=== PATIENT | male | born 1955 | race Caucasian/White ===

== ENCOUNTER 2017-02-09 14:26 | Emergency (ER) | payer OTHER ==
[2017-02-09] MEDS ORDERED: Aspirin Low Dose CHEW TAB* 81 MG PO ONE (14:48)
[2017-02-09 15:05] VITALS: BP 134/78
--- NOTE | 2017-02-09 15:34 | UC ---
Sherry Obrien SooYoung, scribed for Caty Cantu MD on 02/09/17 at 1439 . 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 Associated sx: heavy diaphoresis, nausea/vomiting, weakness, productive cough. Denies CP, fever, jaw pain, dysuria. Vomiting occurred after drinking water and club soda. Per , pt has been helping friends in [employer] and has experienced similar sx a few times over the past few weeks. Allergic to penicillin. Pt denies past cardiac issues, but there is FHx of carotid arteries. He had a stress test several years ago that was nml. - History of Current Complaint Stated Complaint: ARM NUMBNESS, CHEST COMPLAINT Hx Obtained From: Patient, Family/Business Enterprise Officer - present Onset/Duration: Sudden Onset, Lasting Hours, Still Present Timing: Constant Initial Severity: Moderate Current Severity: Moderate Pain Intensity: 0 Aggravating: Nothing Alleviating: Nothing Associated Signs & Symptoms: Positive: Tingling - in LUE, left deltoid, Weakness , Diaphoresis, Nausea/Vomiting, Cough. Negative: Chest Pain, Fever - Risk Factors Pulmonary Embolism Risk Factors: Negative Cardiac Risk Factors: Family History - of carotid artery blockages in both parents Atrial Fibrillation: Negative TAD Risk Factors: Negative - Allergy/Home Medications Allergies/Adverse Reactions: Allergies Allergy/AdvReac Type Severity Reaction Status Date / Time Penicillins Allergy Hives Verified 02/09/17 14:43 Home Medications: Home Medications ARIPiprazole TAB* [Abilify TAB*] 5 mg PO DAILY 02/09/17 [History Confirmed ] DULoxetine DR CAP* [Cymbalta CAP*] 60 mg PO DAILY 02/09/17 [History Confirmed ] Divalproex TAB(*) [Depakote (*)] 500 mg PO BEDTIME 02/09/17 [History Confirmed 02/09/17] PMH/Surg Hx/FS Hx/Imm Hx Previously Healthy: No Other Cardiovascular History: Cholesterol with medication Respiratory History: Asthma, Other Other Respiratory History: sleep apnea, CPAP GI/ History: Gastroesophageal Reflux Neurological History: Seizures - Surgical History Surgical History: Yes Surgery Procedure, Year, and Place: C5 - SURG - 10/21/13. Lt HIP - 7- SURG - STARTED FROM FX - THEN AVN - THEN TOTAL HIP -THEN 5 REVISIONS. Rt TOTAL KNEE. DISCECTOMY- LUMBAR. APPENDECTOMY. SHOULDER,. ABDOMINAL - NO IMPLANTS. BABY - REPAIR OF LRGE INTESTINE - Family History Known Family History: Positive: Cardiac Disease - carotid arteries blocked in both parents and sibling - Social History Occupation: Retired Lives: With Family Alcohol Use: None Substance Use Type: Prescribed Smoking Status (MU): Former Smoker Type: Cigarettes Amount Used/How Often: 1 PPD Length of Time of Smoking/Using Tobacco: 15 YEARS Have You Smoked in the Last Year: No When Did the Patient Quit Smoking/Using Tobacco: 2003 Household Exposure Type: Cigars - Immunization History Most Recent Influenza Vaccination: 2013 Most Recent Tetanus Shot: 2012 Most Recent Pneumonia Vaccination: never Review of Systems Constitutional: Fatigue, Other - pos: diaphoresis Skin: Negative Eyes: Negative ENT: Negative Respiratory: Cough - productive Cardiovascular: Negative Gastrointestinal: Vomiting, Nausea Genitourinary: Negative Motor: Negative Neurovascular: Negative Musculoskeletal: Negative Neurological: Weakness, Other - pos: tingling in LUE Psychological: Negative All Other Systems Reviewed And Are Negative: Yes Physical Exam Triage Information Reviewed: Yes Appearance: No Pain Distress, Well-Nourished, Ill-Appearing, Other: - pos: DIAPHORETIC Vital Signs: Initial Vital Signs Temp 96.2 F 02/09/17 14:40 Pulse 84 02/09/17 14:40 Resp 20 02/09/17 14:40 BP 173/92 02/09/17 14:40 Pulse Ox 98 02/09/17 14:40 elevated BP noted Vital Signs Reviewed: Yes Eyes: Positive: Conjunctiva Clear ENT: Positive: Normal ENT inspection Neck: Positive: Supple Respiratory: Positive: Lungs clear, Normal breath sounds, No respiratory distress Cardiovascular: Positive: RRR, No Murmur, Pulses Normal, Brisk Capillary Refill Abdomen Description: Positive: Nontender, Soft. Negative: Splenomegaly Bowel Sounds: Positive: Present Musculoskeletal: Positive: Strength Intact, ROM Intact Neurological: Positive: Alert, Muscle Tone Normal Psychological Exam: Normal Skin Exam: Normal Diagnostics - EKG Cardiac Rate: NL - 83 bpm Cardiac Rhythm: Sinus: Normal - nml AV ID conduction, nml QTC, neg axis -33, LVH , read at 1429. ST Segment: Normal - Assessment/Plan Course Of Treatment: Allergies noted, high blood pressure noted. Pt medications reviewed this visit. Although pt did not have chest pain, his symptoms of diaphoresis, nausea, left shoulder tingling, and generalized fatigue are concerning for possible silent MS. EKG does not show a STEMI, but it is not normal, has LVH and left axis. Will give pt ASA 324mg and transfer to [facility] ED by ambulance for further eval. - Differential Diagnoses - Chest Pain Differential Diagnosis/HQI/PQRI: Acute MS, ACS, Angina, Lower Respiratory Infection, Pulmonary Embolism - Clinical Impression Provider Diagnoses: generalized fatigue, nausea, diaphoresis, eval for ACS. High blood pressure without diagnosis of hypertension. - Physician Notifications Discussed Patient Care With: David Dinero - ED phys Time Discussed With Above Provider: 14:50 Instructed by Provider To: Transfer - to ED Discharge - Discharge Plan Condition: Stable Disposition: TRANS HIGHER LVL OF CARE FAC Discharge Disposition Comment: to [facility] Referrals: Cachorro Harrison MD [Primary Care Provider] - The documentation as recorded by the Sherry garcia SooYoung accurately reflects the service I personally performed and the decisions made by , Caty Cantu MD.
== END 2017-02-09 15:10 | disposition short-term general hospital (02) ==
LOC: UCEAST 14:26
DX: R53.83 Other fatigue (principal); R11.0 Nausea; R61 Generalized hyperhidrosis; R03.0 Elevated blood-pressure reading, without diagnosis of hypertension; J45.909 Unspecified asthma, uncomplicated; G47.30 Sleep apnea, unspecified; K21.9 Gastro-esophageal reflux disease without esophagitis; R56.9 Unspecified convulsions; Z72.0 Tobacco use; Z82.49 Family history of ischemic heart disease and other diseases of the circulatory system
CPT/HCPCS: 93005; 99213; A9270-GY; G0463

== ENCOUNTER 2017-02-09 15:24 | Observation (INO) | payer OTHER ==
[2017-02-09 15:42] LABS: Hematocrit 48 % (42-52); Hemoglobin 16.1 g/dl (14.0-18.0); Mean Corpuscular HGB Conc 34 g/dl (31-36); Mean Corpuscular Hemoglobin 30 pg (27-31); Mean Corpuscular Volume 90 fL (80-94); Mean Platelet Volume 9 um3 (7.4-10.4); Red Cell Distribution Width 13 % (10.5-15); White Blood Count 9.1 10^3/ul (3.5-10.8)
[2017-02-09] MEDS: NS 0.9% 1000 ML* 2,000 ML IV ONE ×2 (15:47→16:54)
[2017-02-09] MEDS ORDERED: Ondansetron INJ* 2 MG/ML VIAL IV ONE (15:52)
[2017-02-09 15:54] LABS: Albumin 4.7 g/dL (3.2-5.2); BUN/Creatinine Ratio 17.3 (8-20); C Reactive Protein 3.51 mg/L (< 5.00); Calcium 10.1 mg/dL (8.6-10.3); EGFR African American 93.1 (>60); EGFR Non-African American 72.4 (>60); Globulin 3.8 g/dL (2-4); Total Bilirubin 0.8 mg/dL (0.2-1.0); Total Protein 8.5 g/dL (6.4-8.9)
[2017-02-09 15:56] LABS: Potassium 4.5 mmol/L (3.5-5.0)
[2017-02-09 15:57] LABS: Troponin I 0.04 ng/mL (<0.04)
[2017-02-09 16:07] LABS: TSH (Thyroid Stimulating Horm) 1.19 mcIU/mL (0.34-5.60)
--- NOTE | 2017-02-09 16:17 | RAD ---
INDICATION: Diaphoresis COMPARISON: Similar chest x-ray dated July 03, 2015 TECHNIQUE: Single AP portable view of the chest was obtained. FINDINGS: Image quality is compromised due to the relative inferiority of a portable chest x-ray. The heart and mediastinum exhibit normal size and contour. The lungs are grossly clear. There is no evidence of a large pleural effusion. Visualized bones are normal for the patient's age. IMPRESSION: No radiographic evidence for acute cardiopulmonary abnormality on this portable chest x-ray.
[2017-02-09] MEDS ORDERED: Acetaminophen TAB* 325 MG PO ONE (17:33)
[2017-02-09] MEDS ORDERED: Aspirin Low Dose CHEW TAB* 81 MG PO ONE (17:33)
--- NOTE | 2017-02-09 17:42 | ED ---
Fina Obrien Edward, scribed for David Dinero MD on 02/09/17 at 1535 . Complex/Multi-Sys Presentation - HPI Summary HPI Summary: 61 y/o male BIBA s/p two episodes of vomiting and "L deltoid pain" and tingling. Patient had two episodes this morning of vomiting, L deltoid pain, feeling hot, nausea, diaphoresis and a STAPLES. In the past couple of weeks, the patient c/o mild L deltoid pain, fatigue, nausea, cough, and SOB. Denies CP, abd pain, bilateral ankle edema, bloody or black stool, and blood in his vomit. PMHx ulcers. SHx cholecystectomy. Patient stated he had a benign stress test several years ago. - History Of Current Complaint Hx Obtained From: Patient Onset/Duration: Sudden Onset - Severe episode of left deltoid pain and vomiting today, Lasting Weeks - Episodes of fatigue, nausea, diaphoresis and left deltoid pain and tingling for a couple of weeks, Resolved - Got better at Urgent Care Location: Pain At: - Left deltoid - pain and tingling Associated Signs And Symptoms: Positive: Headache, SOB, Cough, Nausea, Vomiting - Denies blood in vomit, Diaphoresis, Other - Hot, fatigue. Negative: Chest Pain, Edema - No bilateral ankle edema, Abdominal Pain, Melena - Allergies/Home Medications Allergies/Adverse Reactions: Allergies Allergy/AdvReac Type Severity Reaction Status Date / Time Penicillins Allergy Hives Verified 02/09/17 14:43 PMH/Surg Hx/FS Hx/Imm Hx Previously Healthy: No Endocrine/Hematology History: Denies: Hx Diabetes, Hx Thyroid Disease Cardiovascular History: Reports: Other Cardiovascular Problems/Disorders - CHOLESTEROL CONTROL WITH MEDICATIONS Denies: Hx Hypertension, Hx Pacemaker/ICD Respiratory History: Reports: Hx Asthma - mild, Hx Sleep Apnea Denies: Hx Chronic Obstructive Pulmonary Disease (COPD) GI History: Reports: Hx Gastroesophageal Reflux Disease, Hx Hiatal Hernia - VERY SMALL, Hx Ulcer History: Reports: Other Problems/Disorders - hx of kidney stones Denies: Hx Renal Disease Musculoskeletal History: Reports: Other Musculoskeletal History - CERVICAL STENOSIS Sensory History: Reports: Hx Contacts or Glasses - GLASSES, Hx Hearing Aid - BILATERAL - OUT BEFORE RECIEVED IN MRI Opthamlomology History: Reports: Hx Contacts or Glasses - GLASSES Neurological History: Reports: Hx Seizures, Other Neuro Impairments/Disorders - DISCECTOMY LOWER LUMBAR SPINE PT UNSURE WHAT LEVEL Psychiatric History: Reports: Hx Depression - CONTROL WITH MEDICATION Denies: Hx Panic Disorder - Cancer History Cancer Type, Location and Year: Depression, Seizures - Surgical History Surgery Procedure, Year, and Place: C5 - SURG - 10/21/13. Lt HIP - 7- SURG - STARTED FROM FX - THEN AVN - THEN TOTAL HIP -THEN 5 REVISIONS. Rt TOTAL KNEE. DISCECTOMY- LUMBAR. APPENDECTOMY. SHOULDER,. ABDOMINAL - NO IMPLANTS. BABY - REPAIR OF LRGE INTESTINE Hx Anesthesia Reactions: No - Immunization History Date of Tetanus Vaccine: JOHN Date of Influenza Vaccine: JOHN Infectious Disease History: Reports: Hx Clostridium Difficile, Hx Hepatitis - treated "years ago" Denies: Hx Human Immunodeficiency Virus (HIV), Hx of Known/Suspected MRSA, Hx Shingles, Hx Tuberculosis, Hx Known/Suspected VRE, Hx Known/Suspected VRSA, History Other Infectious Disease - Family History Known Family History: Positive: Cardiac Disease - Mother - carotid stenosis, Other - Father - prostate cancer, CVA - Social History Occupation: Retired Lives: With Family Alcohol Use: None Substance Use Type: Reports: None, Prescribed Smoking Status (MU): Former Smoker - Quit in 1995 Type: Cigarettes Amount Used/How Often: 1 PPD Length of Time of Smoking/Using Tobacco: 15 YEARS Have You Smoked in the Last Year: No Review of Systems Positive: Fatigue, Skin Diaphoresis Eyes: Negative ENT: Negative Negative: Chest Pain Positive: Shortness Of Breath, Cough Positive: Vomiting, Nausea, Other - No blood in stool, no melena Genitourinary: Negative - No blood in urine Negative: dysuria Positive: Myalgia - L Deltoid pain and tingling. Negative: Edema - No edema in bilateral ankles Skin: Negative Positive: Headache Psychological: Normal All Other Systems Reviewed And Are Negative: Yes Physical Exam Triage Information Reviewed: Yes Vital Signs On Initial Exam: Initial Vitals Temp Pulse Resp BP Pulse Ox 96.7 F 75 18 130/80 96 02/09/17 15:33 02/09/17 15:33 02/09/17 15:33 02/09/17 15:33 02/09/17 15:33 Vital Signs Reviewed: Yes Appearance: Positive: Well-Appearing, No Pain Distress Skin: Positive: Warm, Skin Color Reflects Adequate Perfusion, Dry Head/Face: Positive: Normal Head/Face Inspection Eyes: Positive: Normal ENT: Positive: Normal ENT inspection Neck: Positive: Supple Respiratory/Lung Sounds: Positive: Clear to Auscultation, Breath Sounds Present Cardiovascular: Positive: RRR Abdomen Description: Positive: Other: - Mild tenderness in epigastrium Bowel Sounds: Positive: Present Musculoskeletal: Positive: Normal, Strength/ROM Intact Neurological: Positive: Normal, Sensory/Motor Intact, Alert, Oriented to Person Place, Time Psychiatric: Positive: Normal, Affect/Mood Appropriate Diagnostics - Vital Signs Vital Signs Temp Pulse Resp BP Pulse Ox 02/09/17 16:00 79 18 138/94 97 02/09/17 15:48 96.7 F 76 16 152/88 97 02/09/17 15:37 69 12 152/88 96 02/09/17 15:34 73 15 97 02/09/17 15:33 96.7 F 75 18 130/80 96 - Laboratory Lab Results: Lab Results 02/09/17 02/09/17 02/09/17 Range/Units 14:55 14:55 14:55 WBC 9.1 (3.5-10.8) 10^3/ul RBC 5.30 (4.0-5.4) 10^6/ul Hgb 16.1 (14.0-18.0) g/dl Hct 48 (42-52) % MCV 90 (80-94) fL MCH 30 (27-31) pg MCHC 34 (31-36) g/dl RDW 13 (10.5-15) % Plt Count 215 (150-450) 10^3/ul MPV 9 (7.4-10.4) um3 Neut % (Auto) 73.2 (38-83) % Lymph % (Auto) 14.1 L (25-47) % [place] % (Auto) 10.1 H (1-9) % Eos % (Auto) 0.3 (0-6) % Baso % (Auto) 2.3 H (0-2) % Absolute Neuts (auto) 6.7 (1.5-7.7) 10^3/ul Absolute Lymphs (auto) 1.3 (1.0-4.8) 10^3/ul Absolute Monos (auto) 0.9 H (0-0.8) 10^3/ul Absolute Eos (auto) 0 (0-0.6) 10^3/ul Absolute Basos (auto) 0.2 (0-0.2) 10^3/ul Absolute Nucleated RBC 0 10^3/ul Nucleated RBC % 0 INR (Anticoag Therapy) 1.01 (0.89-1.11) APTT 31.6 (26.0-36.3) seconds D-Dimer, Quantitative < 200 (Less Than 230) ng/mL Sodium 130 L (133-145) mmol/L Potassium 4.5 (3.5-5.0) mmol/L Chloride 99 L (101-111) mmol/L Carbon Dioxide 22 (22-32) mmol/L Anion Gap 9 (2-11) mmol/L BUN 18 (6-24) mg/dL Creatinine 1.04 (0.67-1.17) mg/dL Est GFR ( Amer) 93.1 (>60) Est GFR (Non-Af Amer) 72.4 (>60) BUN/Creatinine Ratio 17.3 (8-20) Glucose 95 (70-100) mg/dL Lactic Acid (0.5-2.0) mmol/L Calcium 10.1 (8.6-10.3) mg/dL Magnesium 2.0 (1.9-2.7) mg/dL Total Bilirubin 0.80 (0.2-1.0) mg/dL AST 28 (13-39) U/L ALT 16 (7-52) U/L Alkaline Phosphatase 50 (34-104) U/L Total Creatine Kinase 121 (10-223) U/L CK-MB (CK-2) 4.0 (0.6-6.3) ng/mL Troponin I 0.04 H* (<0.04) ng/mL C-Reactive Protein 3.51 (< 5.00) mg/L B-Natriuretic Peptide ( - 100) pg/mL Total Protein 8.5 (6.4-8.9) g/dL Albumin 4.7 (3.2-5.2) g/dL Globulin 3.8 (2-4) g/dL Albumin/Globulin Ratio 1.2 (1-3) Lipase 31 (11.0-82.0) U/L TSH 1.19 (0.34-5.60) mcIU/mL 02/09/17 02/09/17 Range/Units 14:55 14:55 WBC (3.5-10.8) 10^3/ul RBC (4.0-5.4) 10^6/ul Hgb (14.0-18.0) g/dl Hct (42-52) % MCV (80-94) fL MCH (27-31) pg MCHC (31-36) g/dl RDW (10.5-15) % Plt Count (150-450) 10^3/ul MPV (7.4-10.4) um3 Neut % (Auto) (38-83) % Lymph % (Auto) (25-47) % [place] % (Auto) (1-9) % Eos % (Auto) (0-6) % Baso % (Auto) (0-2) % Absolute Neuts (auto) (1.5-7.7) 10^3/ul Absolute Lymphs (auto) (1.0-4.8) 10^3/ul Absolute Monos (auto) (0-0.8) 10^3/ul Absolute Eos (auto) (0-0.6) 10^3/ul Absolute Basos (auto) (0-0.2) 10^3/ul Absolute Nucleated RBC 10^3/ul Nucleated RBC % INR (Anticoag Therapy) (0.89-1.11) APTT (26.0-36.3) seconds D-Dimer, Quantitative (Less Than 230) ng/mL Sodium (133-145) mmol/L Potassium (3.5-5.0) mmol/L Chloride (101-111) mmol/L Carbon Dioxide (22-32) mmol/L Anion Gap (2-11) mmol/L BUN (6-24) mg/dL Creatinine (0.67-1.17) mg/dL Est GFR ( Amer) (>60) Est GFR (Non-Af Amer) (>60) BUN/Creatinine Ratio (8-20) Glucose (70-100) mg/dL Lactic Acid 1.0 (0.5-2.0) mmol/L Calcium (8.6-10.3) mg/dL Magnesium (1.9-2.7) mg/dL Total Bilirubin (0.2-1.0) mg/dL AST (13-39) U/L ALT (7-52) U/L Alkaline Phosphatase (34-104) U/L Total Creatine Kinase (10-223) U/L CK-MB (CK-2) (0.6-6.3) ng/mL Troponin I (<0.04) ng/mL C-Reactive Protein (< 5.00) mg/L B-Natriuretic Peptide 22 ( - 100) pg/mL Total Protein (6.4-8.9) g/dL Albumin (3.2-5.2) g/dL Globulin (2-4) g/dL Albumin/Globulin Ratio (1-3) Lipase (11.0-82.0) U/L TSH (0.34-5.60) mcIU/mL Result Diagrams: 02/09/17 14:55 02/09/17 14:55 Lab Statement: Any lab studies that have been ordered have been reviewed, and results considered in the medical decision making process. - Radiology CHEST XRAY Xray Interpretation: No Acute Changes - No radiographic evidence for acute cardiopulmonary abnormality on this portable chest x-ray. Radiology Interpretation Completed By: Radiologist - EKG 1 Ectopy: None EKG Interpretation: 17:14 - NSR @ 66 bpm, Normal ST elevations. Re-Evaluation - Re-Evaluation 1 Re-Evaluation Time: 17:30 Change: Improved Complex Multi-Symp Course/Dx Course Of Treatment: NO CRITICAL CARE TIME. DISCUSSED RESULTS WITH PATIENT/ . C/O THESE SX BEING ANGINA; ADMIT HOSPITALIST STABLE. - Diagnoses Provider Diagnoses: Diaphoresis, Nausea & vomiting, Arm numbness left, Troponin level elevated - Physician Notifications Discussed Care Of Patient With: Jameel Simmons - Concerned about cardiac cause Time Discussed With Above Provider: 17:28 Instructed by Provider To: Admit As Inpatient Discharge - Discharge Plan Condition: Stable Disposition: ADMITTED TO [facility] Referrals: Cachorro Harrison MD [Primary Care Provider] - The documentation as recorded by the Fina garcia Edward accurately reflects the service I personally performed and the decisions made by me, David Dinero MD.
[2017-02-09 18:34] LABS: HDL Cholesterol 39.4 mg/dL
[2017-02-09] MEDS: Heparin VIAL(*) 5000 UNITS/ML VIAL (FIVE THOUSAND) SUBCUT SCH (23:11)
--- NOTE | 2017-02-10 00:52 | HP ---
CC: Dr. Harrison * [facility] MEDICINE HISTORY AND PHYSICAL: DATE OF ADMISSION: 02/09/17 PRIMARY CARE PHYSICIAN: Dr. Harrison. ATTENDING PHYSICIAN: Dr. Brigida Sanabria *(dictation provided by Stefania Bergeron NP) . CHIEF COMPLAINT: Nausea, shortness of breath, and left arm pain. HISTORY OF PRESENT ILLNESS: Mr. Garnett is a 61-year-old male with past medical history of hepatitis C related to multiple hip surgeries back in the , seizure disorder, Bazzi's esophagus, cervical hemilaminectomy, and lumbar surgery, who presents to the hospital today with concern for shortness of breath , nausea, and vomiting with left arm pain. Mr. Garnett states he has been having trouble for about 3 weeks. He reports intermittent episodes with activity where he becomes suddenly nauseous, sweaty, and short of breath. He states that these symptoms resolve with rest. During this time developed some pain in his left arm. However, he notes that he has had ongoing problems with pain to his left arm and had a left hemilaminectomy to C3-C4, C4-C5, and C5-C6 back in 2013. He was paralysed in that arm initially but after 18 months regained strength but now is having pain in the left deltoid. He states he has had a mild cough recently. He thought it was related to allergies. He has had no fever. He has been eating and drinking well. Today, he had an episode that was more severe than all previous episodes. He became drenched in sweat and nauseous and then actually vomited. At that point, he decided he should come in for evaluation. Mr. Garnett reports that he has had a cardiac catheterization about 10 years ago at [facility]. Per his report, his catheterization was negative. In the emergency room, Mr. Garnett had a troponin which was 0.04, CRP was 3.51, sodium was slightly low at 130. Chest x-ray shows no acute process. EKG shows no evidence of ischemia. He is asymptomatic. PAST MEDICAL HISTORY: 1. Hepatitis C with history of hip surgery in the . 2. Seizure disorder. 3. Depression. 4. Bazzi's esophagus. 5. History of left hip surgery with 4 revisions. 6. History of lumbar surgery. 7. History of C3-C4, C4-C5, C5-C6 left hemilaminectomy. MEDICATIONS: 1. Abilify 5 mg p.o. daily. 2. Duloxetine 60 mg p.o. daily. 3. Divalproex ER 1500 mg p.o. q.a.m. 4. Omeprazole 40 mg daily. ALLERGIES: To PENICILLINS. FAMILY HISTORY: Mother had carotid stenosis, father had prostate cancer, and CVA. Sister also has carotid stenosis. 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 He no longer uses any nicotine. No report of alcohol use. He lives with his , Shalini, who is the healthcare proxy. REVIEW OF SYSTEMS: A 14-point review of systems was completed with Mr. Garnett and all those not mentioned above were negative. PHYSICAL EXAMINATION GENERAL: Mr. Garnett is sitting in the bed. He is in no acute distress. VITAL SIGNS: Temperature 96.7, heart rate 75, respiratory rate 20, O2 saturation 98% on room air, and blood pressure 172/87. LUNGS: Clear to auscultation bilaterally with no accessary muscle use and good aeration. HEART: S1, S2. No murmur, rub, or gallop and regular. ABDOMEN: Soft and nontender with bowel sounds positive x4. EXTREMITIES: No cyanosis or edema. NEURO: He is alert, he is oriented x3. He moves all extremities equally. There is no facial asymmetry or focal weakness. Extraocular movements are intact. SKIN: Intact. DIAGNOSTIC STUDIES/LAB DATA: WBC 9.1, hemoglobin 16.1, hematocrit 48, platelet count 215. INR 1.01. Sodium 130, potassium 4.5, chloride 99, serum bicarbonate 22, BUN 18, creatinine 1.04, glucose 95, lactic acid 1.0. Troponin 0.04. CRP 3.51. BNP 22. TSH 1.19. EKG shows sinus rhythm with no evidence of ischemia. Chest x-ray shows no acute intrathoracic process. ASSESSMENT AND PLAN: Mr. Garnett is a 61-year-old male with past medical history of seizure disorder, hepatitis C, multiple surgeries including lumbar surgery, left hemilaminectomy, and multiple hip surgeries, who presents to the hospital today with concern for 3 weeks of intermittent episodes of nausea, shortness of breath, and left arm pain associated with activity. Our plans are for observation in the hospital for the followin. Nausea, shortness of breath, and left arm pain: Certainly the patient's left arm pain could be related to his history of left hemilaminectomy. However , as it is associated with nausea and shortness of breath, I am quite concerned that this could be reflective of ischemic heart disease. Plans are for repeat troponin x2 and then he will go on for an exercise stress test tomorrow. The patient will be monitored on telemetry and will have aspirin daily. Plan to add a lipid profile now. Patient's cardiac catheterization records have been requested from [facility]. 2. Seizure disorder: Continue seizure medicine. 3. Depression: Continue his home medications. 4. History of Bazzi's esophagus: Continue omeprazole. 5. DVT prophylaxis: With heparin subcu. 6. Disposition: To telemetry floor. TIME SPENT: Approximately 60 minutes was spent in the admission of this patient , more than half the time spent with the patient reviewing the events leading up to this hospitalization, performing the physical examination, reviewing the plan of care. STEFANIA BERGERON NP [id number]/CPS #: [id number] THOM
[2017-02-10] MEDS: Heparin VIAL(*) 5000 UNITS/ML VIAL (FIVE THOUSAND) SUBCUT SCH (05:19)
[2017-02-10 07:37] LABS: Urine Bilirubin Negative (Negative); Urine Glucose Negative (Negative); Urine Nitrite Negative (Negative)
[2017-02-10] MEDS ORDERED: Omeprazole CAP* 20 MG PO SCH (09:00)
[2017-02-10] MEDS ORDERED: Aspirin TAB* 325 MG PO SCH (09:00)
[2017-02-10] MEDS ORDERED: Divalproex ER TAB(*) 500 MG PO SCH (09:00)
[2017-02-10] MEDS ORDERED: DULoxetine DR CAP* 60 MG CAP.DR PO SCH (09:00)
[2017-02-10] MEDS ORDERED: ARIPiprazole TAB* 5 MG PO SCH (09:00)
[2017-02-10 11:40] VITALS: BP 147/78
--- NOTE | 2017-02-10 22:34 | DS ---
CC: Dr. Harrison * DISCHARGE SUMMARY: DATE OF ADMISSION: 02/09/17 DATE OF DISCHARGE: 02/10/17 PRIMARY CARE PROVIDER: Dr. Harrison. DISCHARGING PROVIDER: YOVANY Jean. SUPERVISING PHYSICIAN: Nelly Tena MD. * (DICTATED BY YOVANY JEAN ) PRIMARY DISCHARGE DIAGNOSES: 1. Excessive hypertensive response to exercise. 2. Chest pain equivalent without evidence of acute coronary syndrome or ischemic changes on stress test. SECONDARY DISCHARGE DIAGNOSES: 1. History of hepatitis C. 2. Seizure disorder. 3. Depression. DISCHARGE MEDICATIONS: 1. Abilify 5 mg p.o. daily. 2. Aspirin 81 mg p.o. daily. 3. Cymbalta 60 mg p.o. daily. 4. Depakote 1500 mg p.o. daily. 5. Omeprazole 40 mg p.o. daily. 6. Amlodipine 5 mg p.o. daily. MEDICATION CHANGES: 1. Start aspirin. 2. Start amlodipine. HOSPITAL IMAGIN. Chest x-ray shows no acute changes. 2. Stress test, exercise tolerance test shows severe hypertension response to exercise with maximum blood pressure reaching 254/87 mmHg. Associated shortness of breath with exercise, but no ischemic changes on EKG. HOSPITAL COURSE: This is a 61-year-old gentleman with history of hepatitis C, seizure disorder and depression who presented to the emergency department with complaints of intermittent nausea, diaphoresis, shortness of breath and left arm pain. The patient's symptoms have been ongoing for several days, but he had a more severe episode that occurred yesterday that prompted him to visit the emergency department. Upon initial presentation, EKG was unremarkable. Initial troponin was mildly elevated at 0.04 and initial vitals were within normal limits. No changes on chest x-ray and remainder of labs were unremarkable. The patient was subsequently admitted for a period of observation on continuous telemetry monitoring and underwent an exercise tolerance test. He remained asymptomatic during his hospital stay without changes on telemetry. Exercise tolerance test reproduced his shortness of breath, but no nausea, diaphoresis or arm pain. He became severely hypertensive during early recovery with a blood pressure reaching 254/87 mmHg. At the same time having shortness of breath that resolved with recovery. No ischemic changes noted on EKG. Reviewed treatment and followup options with the patient including initiating antihypertensives and daily aspirin. If his symptoms continue, he may require ambulatory blood pressure monitoring with perhaps pulmonary function testing and if symptoms continue, perhaps a nuclear stress test. The patient also notes that he had a cardiac catheterization at [facility] 3 to 4 years ago and he did not receive any stents at that time, but believes that maybe he had some mild stenosis of one of his arteries that was not of significance at that time. Attempts were made to get these records during his hospital stay, but unfortunately were unsuccessful. DISPOSITION AND FOLLOWUP PLAN: The patient is being discharged to home where he lives with his . Recommend initiating amlodipine and aspirin as listed above. If he remains asymptomatic, consider ambulatory blood pressure monitoring , pulmonary function testing, and possibly nuclear stress test. YOVANY JEAN [id number]/[facility] #: [id number] THOM
== END 2017-02-10 11:40 | disposition home or self-care (01) ==
LOC: ED 15:24 → MEDTELE 18:04
PROVIDERS: ADMIT Hospitalist; ATTEND Internal Medicine
DX: I10 Essential (primary) hypertension (principal); R07.9 Chest pain, unspecified; B19.20 Unspecified viral hepatitis C without hepatic coma; G40.909 Epilepsy, unspecified, not intractable, without status epilepticus; F32.9 Major depressive disorder, single episode, unspecified; R06.02 Shortness of breath; K22.70 Barrett's esophagus without dysplasia; Z79.899 Other long term (current) drug therapy; Z87.891 Personal history of nicotine dependence; Z88.0 Allergy status to penicillin
CPT/HCPCS: 36415; 71010; 80053; 80061; 81003; 82550; 82553; 83605; 83690; 83735; 83880; 84443; 84484; 85025; 85379; 85610; 85730; 86140; 93017; 94660; 96361; 96374; 99285; A9270-GY; G0378; J2405